=== PATIENT | male | born 1995 | race Caucasian/White ===

== ENCOUNTER 2017-07-10 16:29 | Emergency (ER) | payer BC ==
[~2017-07-10] VITALS: Ht 182.9 cm; Wt 84.1 kg
[2017-07-10 16:39] VITALS: BP 147/75; TEMP 99.1
[2017-07-10] MEDS ORDERED: OMNICEF 300MG300 MG PO (17:22)
[2017-07-10 17:53] VITALS: PULSE 98
== END 2017-07-10 17:53 | disposition home or self-care (01) ==
LOC: COL.ER 16:29
DX: J06.9 Acute upper respiratory infection, unspecified (principal)